=== PATIENT | female | born 1960 | race Caucasian/White ===

== ENCOUNTER 2025-10-14 10:50 | Emergency (ER) | payer MEDICAID ==
[~2025-10-14] VITALS: Ht 152.4 cm; Wt 52.3 kg
[2025-10-14 12:33] VITALS: BP 109/66; PULSE 68; RESP 18; TEMP 97.9; O2SAT 98
[2025-10-14] MEDS: KETOROLAC TROMETHAMINE 30 MG/ML VIAL IM ONE (12:40)
[2025-10-14] MEDS: BACITRACIN 0.9 GM PACKET OINTMENT TP ONE (12:40)
== END 2025-10-14 12:57 | disposition home or self-care (01) ==
LOC: EMS 10:52
DX: S61.551A Open bite of right wrist, initial encounter (principal); Z86.018 Personal history of other benign neoplasm; Z98.890 Other specified postprocedural states; W54.0XXA Bitten by dog, initial encounter; Y93.89 Activity, other specified; Y92.009 Unspecified place in unspecified non-institutional (private) residence as the place of occurrence of the external cause; Y99.8 Other external cause status
CPT/HCPCS: 99283; 96372; J1885